=== PATIENT | male | born 1970 | race Caucasian/White ===

== ENCOUNTER 2023-12-21 11:20 | Day surgery (SDC) | payer OTHER, SELFPAY ==
[2023-12-19 11:56] VITALS: BMI 39.7
--- NOTE | 2023-12-20 09:47 | HO.ANESPROP2 ---
HPI - Anesthesia Eval Consult details Narrative: 53yo M for Colonoscopy [facility] Past Medical History Medical History (Updated 12/19/23 @ 12:01 by Susan Max, RN) Hx of transfusion of packed red blood cells Sleep apnea HTN (hypertension) History of deviated nasal septum Surgical History Surgical History (Updated 12/19/23 @ 11:58 by Susan Max RN) History of nasal surgery H/O colonoscopy Social History Social History Patient Tobacco Use Status: Former Tobacco user Are you DNR?: No Advance Directives: No Advance Directives Information Provided: Yes Nutrition Risks: No Nutritional Risk Meds Allergies Allergy/AdvReac Type Severity Reaction Status Date / Time No Known Allergies Allergy Verified 12/19/23 11:53 Home Medications Medication Instructions Recorded Confirmed Last Taken Type lisinopril 5 mg tablet 5 mg PO DAILY 12/21/23 12/21/23 12/21/23 History Exam Height,Weight and Vital Signs: Height 5 ft 11 in Weight 129.274 kg Assessment and Plan Assessment Anesthesia Assessment: Chart Reviewed
[2023-12-21 11:54] VITALS: BP 161/77; PULSE 54; RESP 18; TEMP 36.2; O2SAT 97; BMI 39.7
[2023-12-21] MEDS: Lactated Ringers 1,000 ML 100 ML IVCONT (12:08)
--- NOTE | 2023-12-21 12:26 | HO.ANESPROP2 ---
[facility] Past Medical History Medical History (Updated 12/19/23 @ 12:01 by Susan Max RN) Hx of transfusion of packed red blood cells Sleep apnea HTN (hypertension) History of deviated nasal septum Family History Family history of problems with anesthesia: No Surgical History Surgical History (Updated 12/19/23 @ 11:58 by Susan Max RN) History of nasal surgery H/O colonoscopy History of Problems with Anesthesia: No Social History Social History Patient Tobacco Use Status: Former Tobacco user Are you DNR?: No Advance Directives: No Advance Directives Information Provided: Yes Nutrition Risks: No Nutritional Risk Meds Allergies Allergy/AdvReac Type Severity Reaction Status Date / Time No Known Allergies Allergy Verified 12/19/23 11:53 Active Medications: Current Medications Lactated Ringer's (Lr) 1,000 mls @ 100 mls/hr IVCONT .Q10H MAMADOU Last Admin: 12/21/23 12:08 Dose: 100 mls/hr Sodium Biphosphate/Sodium Phosphate (Sodium Phosphate,Cowley-Dibasic 133 Ml Enema) 133 ml ID ONCE PRN PRN Reason: Poor Colonoscopy Prep Results Home Medications Medication Instructions Recorded Confirmed Last Taken Type lisinopril 5 mg tablet 5 mg PO DAILY 12/21/23 12/21/23 12/21/23 History Exam Height,Weight and Vital Signs: Height 5 ft 11 in Weight 129.274 kg Last Vital Signs Temp 97.1 F 12/21/23 11:54 Pulse 54 12/21/23 11:54 Resp 18 12/21/23 11:54 BP 161/77 H 12/21/23 11:54 Pulse Ox 97 12/21/23 11:54 O2 Del Method Room Air 12/21/23 11:54 Airway Mallampati Class: II TM Dist: >3cm Neck ROM: Full Partial: Upper Loose/Missing/Broken Teeth: Yes and No (11 6) Heart: rrr Lungs: cta b/l Assessment and Plan Assessment Anesthesia Assessment: Anesthesia Plan Discussed and Chart Reviewed Final Anesthetic Review Family History of Problems with Anesthesia: No History of Problems with Anesthesia: No NPO: Yes ASA Class: II Final Preanesthetic Review: No Changes in Pt Med Stat, Meds/Allgs Chart Reviewed, Consent Obtained/Reviewed and Anes Risks/Benef Reviewed Patient Risk: Intermediate Procedure Risk: Intermediate Anesthetic Plan Anesthetic Plan: MAC:
[2023-12-21 14:50] VITALS: BP 117/69; PULSE 61; RESP 16; TEMP 36.2; O2SAT 97
--- NOTE | 2023-12-21 14:50 | P.BOP_ITS ---
Brief Operative Note Date of Service: 12/21/23 Pre-op diagnosis: Screening Post-op diagnosis: other (Diverticulosis) Procedure: Colonoscopy to the cecum and TI Surgeon: Eduar Russo MD Anesthesia: MAC Was an Firmware Software Verification Engineer used for this Procedure?: No Estimated blood loss (mL): 0 Pathology: none sent Condition: stable Disposition: PACU
[2023-12-21 15:05] VITALS: BP 136/76; PULSE 64; RESP 14; O2SAT 98
[2023-12-21 15:21] VITALS: BP 149/77; PULSE 60; RESP 15; TEMP 36.1; O2SAT 100
--- NOTE | 2023-12-21 19:55 | OP_ITS ---
DATE OF SERVICE: 12/21/2023 SURGEON: Eduar Russo MD INDICATIONS: The patient presents for followup of personal history of colon polyps and colorectal cancer screening. Full consent has been obtained from him for this, including risks of bleeding and perforation. PREOPERATIVE DIAGNOSIS: Colorectal cancer screening and personal history of colon polyps. POSTOPERATIVE DIAGNOSIS: PROCEDURE PERFORMED: Colonoscopy to cecum and terminal ileum. ESTIMATED BLOOD LOSS: COMPLICATIONS: ANESTHESIA: Monitored anesthesia care. ASSISTANTS: SPECIMENS: POSTOPERATIVE DIAGNOSES: Colorectal cancer screening and personal history of colon polyps, sigmoid diverticulosis, and internal hemorrhoids. DESCRIPTION OF PROCEDURE: The patient was placed in the left lateral decubitus position. The digital rectal exam revealed no abnormalities. The Olympus video pediatric colonoscope was entered into the rectum and advanced easily to the cecum. Once in the cecum, I did identify normal-appearing cecal pouch, including the appendiceal orifice. The terminal ileum was cannulated and appeared normal. The scope was withdrawn back in the colon. The entire cecum and ileocecal valve appeared normal. A previously placed submucosal ink katelyn was noted as that had been placed during his original colonoscopy in [place] in 2009. I did not see any sign of residual polyp tissue. The ileocecal valve appeared to be somewhat prominent, but otherwise normal. The scope was slowly withdrawn assessing all mucosal surfaces carefully. Preparation was excellent. I did not visualize any sign of polyps, colitis, or angiodysplasia. There was a mild amount of sigmoid diverticulosis. In the rectum, scope was retroflexed visualizing internal hemorrhoids, but no other pathology. The rectal mucosa appeared normal. The scope was straightened and withdrawn from the patient. He tolerated the procedure well and was returned to the recovery area in stable condition. IMPRESSION: 1. Mild diverticulosis. 2. Internal hemorrhoids. PLAN: I would recommend a repeat colonoscopy in 5 years for further screening and surveillance. This has been discussed with his . Eduar Russo MD RMW/ISIDRAL / [id number]
== END 2023-12-21 15:32 | disposition home or self-care (01) ==
PROVIDERS: PCP Family Medicine; Visit Provider Internal Medicine
PROC: 0DJD8ZZ Inspection of Lower Intestinal Tract, Via Natural or Artificial Opening Endoscopic (ICD-10-PCS; CPT 45378; principal; 2023-12-21 13:10)
DX: Z12.11 Encounter for screening for malignant neoplasm of colon (principal); Z86.010 Personal history of colon polyps; K57.30 Diverticulosis of large intestine without perforation or abscess without bleeding; K64.8 Other hemorrhoids; I10 Essential (primary) hypertension; G47.30 Sleep apnea, unspecified; Z79.899 Other long term (current) drug therapy; Z87.891 Personal history of nicotine dependence
CPT/HCPCS: 45378; J2704